=== PATIENT | female | born 1995 | race Caucasian/White ===

== ENCOUNTER 2017-01-22 07:43 | Inpatient (IN) | payer OTHER ==
[~2017-01-22] VITALS: Ht 157.5 cm; Wt 85.5 kg
[~2017-01-22 07:43] MED LIST: BCPILLS PO
[2017-01-22] MEDS ORDERED: PRENTAB26 PO (08:34)
[2017-01-22 08:37] VITALS: Ht 157.5 cm; Wt 85.5 kg
[2017-01-22] MEDS ORDERED: LACTATED RINGER'S 1000ML 1,000 ML IV PRN (08:56)
[2017-01-22 09:26] LABS: HEMATOCRIT 38.3 % (37-47); MEAN CELL VOLUME 94.1 fL (80-100); MEAN CORPUSCULAR HEMOGLOBIN 32.4 pg (25-34); MEAN CORPUSCULAR HGB CONC 34.5 g/dl (32-36); MEAN PLATELET VOLUME 11.1 fL (7.4-10.4); PLATELET COUNT 202 K/uL (130-400); RED BLOOD COUNT 4.07 M/uL (4.2-5.4)
[2017-01-22] MEDS ORDERED: PENICILLIN G POTASSIUM IV 6 MU in DEXTROSE 5% 250ML 250 ML IV SCH (10:00)
[2017-01-22] MEDS ORDERED: DINOPROSTONE 10 MG INSERT PV ONE (10:00)
[2017-01-22 11:04] LABS: BENZODIAZEPINE, URINE NEG (NEG); COCAINE,URINE NEG (NEG); PHENCYCLIDINE, URINE NEG (NEG)
[2017-01-23] MEDS ORDERED: LACTATED RINGER'S 1000ML 500 ML IV PRN ×2 (00:29→13:35)
[2017-01-23] MEDS ORDERED: OXYTOCIN 30 UNITS/500ML NSS IV PRN (00:30)
[2017-01-23] MEDS: LACTATED RINGER'S 1000ML 1,000 ML IV SCH ×5 (03:28→20:48)
[2017-01-23] MEDS: PENICILLIN G POTASSIUM IV 3 MU in DEXTROSE 5% 100ML 100 ML IV PRN ×5 (07:20→23:51)
[2017-01-23] MEDS ORDERED: FENTANYL 2MCG/ML ROPIV 1.25MG/ML 100ML BAG EPI ONE (11:30)
[2017-01-23] MEDS ORDERED: BUPIVACAINE 0.25% 30 ML VIAL ONE (11:30)
[2017-01-23] MEDS ORDERED: EpHEDrine SULFATE INJ 50 MG/ML AMP ONE (11:30)
[2017-01-23] MEDS ORDERED: FENTANYL CITRATE INJ 50 MCG/1 ML 2 ML VIAL ONE (11:30)
[2017-01-23] MEDS ORDERED: NALOXONE HCL INJ 1 MG in SODIUM CHLORIDE 0.9% 1000ML 1,000 ML IV PRN (13:35)
[2017-01-23] MEDS ORDERED: EpHEDrine SULFATE INJ 50 MG/ML AMP IV PRN (13:45)
[2017-01-23] MEDS ORDERED: NALOXONE HCL INJ 0.4 MG/1 ML VIAL/CARP IV PRN (13:45)
[2017-01-23] MEDS ORDERED: DiphenhydrAMINE HCL 50 MG/ML VIAL IV PRN (13:45)
[2017-01-23] MEDS ORDERED: ONDANSETRON INJ 2 MG/ML 2 ML VIAL IV PRN (13:45)
[2017-01-23] MEDS ORDERED: NALBUPHINE HCL INJ 10 MG/ML AMP IV PRN (13:45)
[2017-01-23] MEDS: FENTANYL 2MCG/ML ROPIV 1.25MG/ML 100ML BAG EPI PRN ×2 (14:59→22:45)
[2017-01-24] VITALS (11 sets, daily range): BP systolic 111–126; BP diastolic 72–75; PULSE 82–99; TEMP 36.4–38; O2SAT 92–97
[2017-01-24] MEDS ORDERED: NURSING VERBAL MED ORDER ONE (01:15)
[2017-01-24] MEDS ORDERED: BUPIVACAINE 0.25% 30 ML VIAL ONE (01:53)
[2017-01-24] MEDS ORDERED: FENTANYL 2MCG/ML ROPIV 1.25MG/ML 100ML BAG EPI PRN (02:15)
[2017-01-24] MEDS: PENICILLIN G POTASSIUM IV 3 MU in DEXTROSE 5% 100ML 100 ML IV PRN (03:57)
[2017-01-24] MEDS: FENTANYL 2MCG/ML ROPIV 1.25MG/ML 100ML BAG EPI PRN ×2 (05:39→07:01)
[2017-01-24] MEDS ORDERED: CEFOXITIN IV 2,000 MG in DEXTROSE 5% 50ML 50 ML IV SCH (06:00)
[2017-01-24] MEDS ORDERED: CITRIC ACID/SODIUM CITRATE 15 ML UDC ONE (08:05)
[2017-01-24] MEDS ORDERED: LACTATED RINGER'S 1000ML 1,000 ML IV SCH ×2 (08:06→10:25)
[2017-01-24] MEDS ORDERED: LIDOCAINE/EPINEPHRINE 2% 1:200,000 20 ML SDV ONE ×2 (08:14→09:21)
[2017-01-24] MEDS ORDERED: CITRIC ACID/SODIUM CITRATE 15 ML UDC PO ONE (08:15)
[2017-01-24] MEDS ORDERED: SODIUM BICARB 8.4% INJ 50 MEQ/50 ML SYR IV ONE (08:44)
[2017-01-24] MEDS ORDERED: ONDANSETRON INJ 2 MG/ML 2 ML VIAL ONE (09:21)
[2017-01-24] MEDS ORDERED: OXYTOCIN INJ 10 UNITS/ML VIAL ONE ×4 (09:21→10:04)
[2017-01-24] MEDS ORDERED: METHYLERGONOVINE MALEATE 0.2 MG/ML AMP ONE (09:34)
[2017-01-24] MEDS ORDERED: MoRPHine SULFATE PF 1 MG/ML 10 ML AMP/VIAL ONE (09:35)
[2017-01-24] MEDS ORDERED: NO NARCOTICS OR SEDATIVES SCH (10:00)
[2017-01-24] MEDS ORDERED: KETOROLAC TROMETHAMINE 30 MG/ML VIAL IV. PRN (10:00)
[2017-01-24] MEDS ORDERED: MoRPHine SULFATE 2 MG/ML CARP IV PRN (10:00)
[2017-01-24] MEDS ORDERED: MoRPHine SULFATE PF 1 MG/ML 10 ML AMP/VIAL EPI PRN (10:00)
[2017-01-24] MEDS ORDERED: MEPERIDINE HCL 25 MG/ML CARP IV PRN (10:00)
[2017-01-24] MEDS ORDERED: CONTINUE MEDICATION ONE (10:00)
[2017-01-24] MEDS ORDERED: MAGNESIUM HYDROXIDE SUSP 30 ML UDC PO PRN (10:30)
[2017-01-24] MEDS ORDERED: SUPERCREAM 0.870 % 15GM JAR EXT PRN (10:30)
[2017-01-24] MEDS ORDERED: HYDROCORTISONE ACETATE 25 MG SUPP PR PRN (10:30)
[2017-01-24] MEDS ORDERED: LANOLIN OINT EXT PRN ×2 (10:30)
[2017-01-24] MEDS ORDERED: SENNA 8.6 MG TAB PO PRN (10:30)
[2017-01-24] MEDS ORDERED: BENZOCAINE 20% AER SPR 82.5 GM CAN EXT PRN (10:30)
[2017-01-24] MEDS ORDERED: PROMETHAZINE HCL INJ 25 MG in SODIUM CHLORIDE 0.9% 50ML 50 ML IV PRN (10:30)
[2017-01-24] MEDS: OXYTOCIN INJ 20 UNITS in LACTATED RINGER'S 1000ML 1,000 ML IV SCH ×2 (11:22→23:41)
--- NOTE | 2017-01-24 12:38 | Anesthesiology Progress Note ---
Anesthesia Post Op Note Date & Time Jan 24, 2017 at 12:37 Vital Signs Pain Intensity: 0.0 Notes Mental Status: alert / awake / arousable, participated in evaluation Pt Amnestic to Procedure: Yes Nausea / Vomiting: adequately controlled Pain: adequately controlled Airway Patency, RR, SpO2: stable & adequate BP & HR: stable & adequate Hydration State: stable & adequate Neuraxial Anesthesia: was administered, sensory block is resolving Anesthetic Complications: no major complications apparent The patient feels well with no complaints. She is moving her legs and toes. The epidural catheter was removed at the end of the procedure with the black tip intact.
[2017-01-24] MEDS ORDERED: GENTAMICIN CONSULT ACTIVE PRN (13:00)
[2017-01-24] MEDS: SIMETHICONE 80 MG CHEW PO SCH ×3 (14:09→20:02)
[2017-01-24] MEDS: AMPICILLIN IV 2,000 MG in SODIUM CHLORIDE 0.9% 100ML 100 ML IV SCH ×2 (14:09→20:02)
--- NOTE | 2017-01-24 14:26 | Pharmacy Progress Note ---
Pharmacy Abx Initial Consult Date of Service Jan 24, 2017. Pharmacy Dosing Scope Date of Consult: 01/24/17 Consultation requested by: Dr. Gordillo Gentamicin 120 mg IV every [address] Gordillo. Based on conversation with provider, he would like Pharmacy to monitor Gentamicin IV, order appropriate labs and adjust drug dose/frequency as needed. Subjective The patient is a 21 year old female admitted on Jan 22, 2017 at 07:43. Objective Height (Feet): 5 Height (Inches): 2.00 Weight (Kilograms): 85.500 Assessment & Plan Assessment 21 year old female s/p . Patient is being started on empiric ampicillin and gentamicin IV due to fever. * antibiotics are ordered with "post-op" indication, therefore, order will discontinue in 24 hours --> nurse aware * no baseline kidney function - ordered SCR * Dr. Gordillo requested dose of 120 mg IV every 8 be given initially and pharmacy may adjust as needed Plan Empiric ampicillin and gentamicin for treatment of fever s/p Ampicillin (not pharmacy consult) - 2g IV every 6 hours Gentamicin * Patient is not a candidate for extended-interval dosing due to altered pharmacokinetics in the setting of POD #0 s/p * Dose: 120 mg (1.8 mg/kg) IV every 8 hours * Goal trough level: < 1-2 mcg/mL * Goal peak level: 6 to 8 mcg/mL * Peak and trough level will be ordered if gentamicin is continued beyond 24 hours Pharmacy will continue to follow and will adjust dose/frequency as necessary. Thank you.
--- NOTE | 2017-01-24 14:33 | OPERATIVE REPORT ---
DATE OF OPERATION: 01/24/2017 INDICATION FOR SURGERY: This is a 21-year-old G1, P0 who was induced for postdates. Induction was started on 01/22/2017. She received Cervidil, followed by Pitocin. The patient progressed to 5 cm and arrested labor at 5 cm. She remained at 5-6 cm for 12 hours with no change in cervical dilation. Artificial rupture of membranes was performed. Pitocin augmentation was performed as well. The patient continued to arrest at 5-6 cm. She experienced deceleration which occurred on 01/24/2017 around 0500. Fetus was successfully resuscitated. Pitocin was stopped and after 1-2 hours, there was still no change in dilation. Decision was therefore made to perform section. The patient agreed, consent was obtained and was sent to the OR for section. PREOPERATIVE DIAGNOSES: 1. Primary section. 2. Failure to progress. POSTOPERATIVE DIAGNOSES: Same. PROCEDURE: section. FINDINGS: Live infant female in occiput posterior presentation. 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 There was body cord and the nuchal cord as well as meconium. Uterus appeared grossly normal. Both adnexa appeared grossly normal. The rest of the abdominal and pelvic exam was unremarkable. ESTIMATED BLOOD LOSS: 750 mL. IV FLUIDS: 2000 mL. URINE OUTPUT: 250 mL clear urine at end of the procedure. SPECIMEN: 1. Placenta. 2. Cord blood. 3. Cord gases. DRAINS: Grossman catheter. SURGEON: Dr. Gordillo. MUSIC INTERN: Dr. Antony. ANESTHESIA: Epidural. COMPLICATIONS: None. DISPOSITION: Stable to recovery room. PROCEDURE IN DETAIL: The patient was taken to the operating room where she was prepped and draped in normal sterile fashion after timeout was called. A Pfannenstiel incision was made with a scalpel and carried down to the fascia. Fascia was incised in the midline and extended laterally on both sides. The rectus abdominis muscle was sharply dissected off the fascia. The peritoneum was identified and entered sharply. Once inside the abdomen, an Darin retractor was placed in the abdomen for visualization. The vesicouterine peritoneum was sharply dissected off the lower segment of the uterus. Transverse incision was made in lower segment of the uterus and extended laterally. was delivered as stated and findings. The infant was in occiput posterior presentation. 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 was delivered. There was a nuchal cord which was loose and easily reduced, so was the body cord. Cord was clamped and handed over to the pediatric team. As stated above, there was also meconium present. Placenta was manually removed and uterus was exteriorized and cleared of all clots and debris. Uterus was closed in 2 layers using 0 Vicryl. The vesicouterine peritoneum was reapproximated with plain suture. There was good hemostasis at the end of the closure. Copious amount of irrigation was used to irrigate the abdomen. The uterus was returned back into the abdominal cavity. Both fallopian tubes and adnexa appeared grossly normal. Uterus appeared grossly normal as well. Rest of the pelvic and abdominal exam was unremarkable. The Darin retractor was removed. The peritoneum was reapproximated using plain suture. The rectus abdominis muscle was reapproximated using plain suture as well. The fascia was closed in a running fashion using a Vicryl stitch. The subQ space was reapproximated using plain suture and skin was closed with 4-0 Monocryl. All instruments are removed from the abdomen and vagina and accounted for x2 including sponges and needles. The patient and baby are doing well in recovery. I attest to the content of the Intraoperative Record and any orders documented therein. Any exception s are noted below.
[2017-01-24 15:07] LABS: CREATININE 1.4 mg/dl (0.60-1.20)
[2017-01-24] MEDS: GENTAMICIN INJ 120 MG in DEXTROSE 5% 100ML 100 ML IV SCH ×2 (15:28→23:38)
[2017-01-24] MEDS: DOCUSATE SODIUM 100 MG CAP PO SCH (20:02)
[2017-01-25] VITALS (7 sets, daily range): BP systolic 98–111; BP diastolic 59–74; PULSE 81–94; TEMP 36.6–37; O2SAT 94–97
[2017-01-25] MEDS: AMPICILLIN IV 2,000 MG in SODIUM CHLORIDE 0.9% 100ML 100 ML IV SCH ×2 (03:07→09:16)
[2017-01-25] MEDS ORDERED: ONDANSETRON INJ 2 MG/ML 2 ML VIAL IV PRN (04:00)
[2017-01-25] MEDS ORDERED: DC INTRASPINAL MORPHINE SCH (04:00)
[2017-01-25] MEDS ORDERED: OXYCODONE/ACETAMINOPHEN 5-325 TAB PO PRN (04:00)
[2017-01-25] MEDS ORDERED: DiphenhydrAMINE HCL 50 MG/ML VIAL IV PRN (04:00)
[2017-01-25] MEDS: IBUPROFEN 600 MG TAB PO PRN ×4 (06:20→20:25)
[2017-01-25] MEDS: OXYCODONE/ACETAMINOPHEN 5-325 TAB PO PRN ×4 (06:20→20:25)
[2017-01-25] MEDS: GENTAMICIN INJ 120 MG in DEXTROSE 5% 100ML 100 ML IV SCH (07:22)
[2017-01-25 07:35] LABS: BASO % 0.1 %; BASO ABS # 0.01 K/uL (0-0.2); COMPLETE YES; EOS % 1.4 %; HEMATOCRIT 31.3 % (37-47); IG% 0.4 %; LYMPH % 10.8 %; LYMPH ABS # 1.72 K/uL (1.2-3.4); MEAN CORPUSCULAR HEMOGLOBIN 31.5 pg (25-34); MEAN CORPUSCULAR HGB CONC 33.5 g/dl (32-36); MEAN PLATELET VOLUME 10.7 fL (7.4-10.4); MONO % 7.4 %; NEUT % 79.9 %; PLATELET COUNT 145 K/uL (130-400); RED BLOOD COUNT 3.33 M/uL (4.2-5.4); WHITE BLOOD COUNT 15.93 K/uL (4.8-10.8)
[2017-01-25 08:06] LABS: CREATININE 0.8 mg/dl (0.60-1.20)
[2017-01-25] MEDS: SIMETHICONE 80 MG CHEW PO SCH ×4 (08:11→20:26)
[2017-01-25] MEDS: DOCUSATE SODIUM 100 MG CAP PO SCH ×2 (08:11→20:26)
[2017-01-25] MEDS: PRENATAL VITAMIN TAB PO SCH (08:12)
[2017-01-25] MEDS: FERROUS SULFATE 325 MG TAB PO SCH (08:12)
--- NOTE | 2017-01-25 09:23 | OB/GYN Progress Note ---
[employer] Progress Note Date of Service Jan 25, 2017. Subjective conversation w/ patient, physical exam Ambulation: ambulating normally Voiding: vann catheter in place Passing Gas: Yes Diet Tolerance: Regular Diet Lochia: Small Feeding Type: Breast Feeding Pain: 2/10 Notes: Doing well. Pain well controlled. Incision dressing removed and is c/d/i. Lochia minimal. Tolerating regular diet, +flatus, -BM. Vann in place and draining clear urine. Will remove this morning. Objective Vital Signs Date Time Temp Pulse Resp B/P (MAP) Pulse Ox O2 Delivery O2 Flow Rate FiO2 01/25/17 03:55 36.7 89 16 103/59 (74) 96 Room Air 01/25/17 03:00 16 96 01/25/17 02:00 16 94 01/25/17 01:00 16 94 01/25/17 00:00 96 Room Air 01/25/17 00:00 36.9 88 18 103/67 (79) 96 Room Air 01/25/17 00:00 18 96 01/24/17 23:00 18 96 01/24/17 22:00 18 95 01/24/17 21:00 18 96 01/24/17 20:00 36.4 82 18 111/72 (85) 97 Room Air 01/24/17 20:00 18 97 01/24/17 19:05 18 92 01/24/17 18:05 18 93 01/24/17 17:05 18 93 01/24/17 16:15 36.4 99 20 118/75 (89) 92 Room Air 01/24/17 16:15 92 Room Air 01/24/17 16:05 16 92 01/24/17 15:05 20 93 01/24/17 13:05 38.0 88 20 126/75 (92) 92 Room Air 01/24/17 13:05 92 Room Air Physical Exam General Appearance: WELL-APPEARING Respiratory/Chest: chest non-tender, lungs clear Cardiovascular: regular rate, rhythm Abdomen: normal bowel sounds, soft Fundus: Firm Incision Description: Clean, Dry & Intact Extremities: normal range of motion, non-tender, no calf tenderness Laboratory Results Last 24 Hours Test 01/24/17 14:06 01/25/17 07:08 Creatinine 1.40 mg/dl 0.80 mg/dl Est Creatinine Clear Calc Drug Dose 64.5 ml/min 112.9 ml/min Estimated GFR () 62.1 122.2 Estimated GFR (Non- 53.6 105.4 White Blood Count 15.93 K/uL Red Blood Count 3.33 M/uL Hemoglobin 10.5 g/dL Hematocrit 31.3 % Mean Corpuscular Volume 94.0 fL Mean Corpuscular Hemoglobin 31.5 pg Mean Corpuscular Hemoglobin Concent 33.5 g/dl Platelet Count 145 K/uL Mean Platelet Volume 10.7 fL Neutrophils (%) (Auto) 79.9 % Lymphocytes (%) (Auto) 10.8 % Monocytes (%) (Auto) 7.4 % Eosinophils (%) (Auto) 1.4 % Basophils (%) (Auto) 0.1 % Neutrophils # (Auto) 12.73 K/uL Lymphocytes # (Auto) 1.72 K/uL Monocytes # (Auto) 1.18 K/uL Eosinophils # (Auto) 0.22 K/uL Basophils # (Auto) 0.01 K/uL RDW Standard Deviation 49.4 fL RDW Coefficient of Variation 14.4 % Immature Granulocyte % (Auto) 0.4 % Immature Granulocyte # (Auto) 0.07 K/uL Assessment and Plan Post-Op Day Number: 1 Continue Routine Care: -D/C soo magallon AM -[facility] c/d/i -Continue routine postop care.
[2017-01-25] MEDS ORDERED: BISACODYL 5 MG TABEC PO ONE (22:00)
[2017-01-26] VITALS: BP 115/73; PULSE 77; TEMP 36.4; O2SAT 99
[2017-01-26] MEDS: IBUPROFEN 600 MG TAB PO PRN ×6 (01:02→20:59)
[2017-01-26] MEDS: OXYCODONE/ACETAMINOPHEN 5-325 TAB PO PRN ×6 (01:02→21:00)
[2017-01-26 06:36] LABS: HEMATOCRIT 31.9 % (37-47)
--- NOTE | 2017-01-26 07:26 | OB/GYN Progress Note ---
[employer] Progress Note Date of Service Jan 26, 2017. Subjective conversation w/ patient, physical exam Ambulation: ambulating normally Voiding: no voiding problems Passing Gas: Yes Diet Tolerance: Regular Diet Lochia: Moderate Feeding Type: Breast Feeding Review of Systems Constitutional: No fever, No chills, No sweats, No weight loss, No weakness, No fatigue, No problem reported Respiratory: No cough, No sputum, No wheezing, No shortness of breath, No dyspnea on exertion, No dyspnea at rest, No hemoptysis, No problem reported Cardiac: No chest pain, No orthopnea, No PND, No edema, No claudication, No palpitations, No problem reported Breast: No see HPI, No breast lump, No change in shape, No nipple discharge, No breast pain, No problem reported Abdomen: No pain, No nausea, No vomiting, No diarrhea, No constipation, No GI bleeding, No problem reported Female : No see HPI, No dysuria, No urinary frequency, No hematuria, No incontinence, No abnormal vaginal bleeding, No vaginal discharge, No problem reported Objective Vital Signs Date Time Temp Pulse Resp B/P (MAP) Pulse Ox O2 Delivery O2 Flow Rate FiO2 01/26/17 00:00 36.4 77 18 115/73 (87) 99 Room Air 01/26/17 00:00 99 Room Air 01/25/17 15:45 Room Air 01/25/17 15:45 36.6 81 18 98/66 (77) 97 Room Air 01/25/17 07:30 Room Air 01/25/17 07:30 37.0 94 18 111/74 (86) 96 Room Air Physical Exam General Appearance: WELL-APPEARING Respiratory/Chest: chest non-tender Cardiovascular: regular rate, rhythm Abdomen: normal bowel sounds Fundus: Firm Incision Description: Clean, Dry & Intact Extremities: normal range of motion Laboratory Results Last 24 Hours Test 01/26/17 06:18 Hemoglobin 10.5 g/dL Hematocrit 31.9 % Assessment and Plan Post-Op Day Number: 2 Continue Routine Care: c/sec day #2 Pt doing well d/c home with instructions
[2017-01-26 08:30] VITALS: BP 131/85; PULSE 82; TEMP 36.4; O2SAT 99
[2017-01-26] MEDS: DOCUSATE SODIUM 100 MG CAP PO SCH ×2 (09:19→20:59)
[2017-01-26] MEDS: FERROUS SULFATE 325 MG TAB PO SCH (09:19)
[2017-01-26] MEDS: SIMETHICONE 80 MG CHEW PO SCH ×4 (09:19→20:59)
[2017-01-26] MEDS: PRENATAL VITAMIN TAB PO SCH (09:19)
[2017-01-26] MEDS ORDERED: BISACODYL 10 MG SUPP PR PRN (10:30)
[2017-01-26 11:00] VITALS: BP 122/84; PULSE 84; TEMP 36.4; O2SAT 98
[2017-01-26 15:50] VITALS: BP 113/72; PULSE 80; TEMP 36.6; O2SAT 98
[2017-01-26 23:25] VITALS: BP 116/76; PULSE 68; TEMP 36.4
[2017-01-27] MEDS: OXYCODONE/ACETAMINOPHEN 5-325 TAB PO PRN ×2 (02:08→08:28)
[2017-01-27] MEDS: IBUPROFEN 600 MG TAB PO PRN ×2 (02:08→08:28)
[2017-01-27 07:30] VITALS: BP 135/93; PULSE 70; TEMP 36.6; O2SAT 98
[2017-01-27] MEDS: SIMETHICONE 80 MG CHEW PO SCH (08:26)
[2017-01-27] MEDS: DOCUSATE SODIUM 100 MG CAP PO SCH (08:26)
[2017-01-27] MEDS: FERROUS SULFATE 325 MG TAB PO SCH (08:26)
[2017-01-27] MEDS: PRENATAL VITAMIN TAB PO SCH (08:26)
[2017-01-27] MEDS ORDERED: MTR600X PO (09:38)
--- NOTE | 2017-01-27 09:41 | Discharge Instructions ---
Discharge Instructions Date of Service Jan 27, 2017. Admission Reason for Admission: Induction Discharge Discharge Diagnosis / Problem: term delivered Discharge Goals Goal(s): Routine recovery after delivery Activity Recommendations Activity Limitations: as noted below Lifting Limitations: no more than 10 pounds May Resume Sexual Activity: after follow-up appointment Shower/Bathe: no limitations Driving or Machine Use: resume 3 days after discharge . Instructions / Follow-Up Instructions / Follow-Up ACTIVITY RECOMMENDATIONS: * Gradual return to full activity over the next 2-3 weeks. * No lifting - nothing heavier than baby over the next 2-3 weeks. * Do not engage in vigorous exercise, sexual activity or sports until cleared by your physician. * Do not drive or operate any motorized equipment until cleared by your physician. * You may shower/bathe daily. BREAST CARE: If you are not breast feeding: * Wear a supportive bra 24 hours a day for one to two weeks. * Avoid stimulating your breasts and nipples as much as possible during the first few weeks after delivery. * When taking a shower, have the warm water hit your back, not breasts. * When your breasts feel full, apply ice packs. Usually three to four times a day helps ease the discomfort. * Take a mild pain medication (Tylenol/Motrin) when you are uncomfortable. If breast feeding: * Use breast milk to lubricate nipples. Lansinoh cream may be used for sore nipples. You do not need to remove cream prior to breast feeding. If using a different brand of cream, check the label for directions regarding removal of cream prior to nursing. * Wear a supportive bra. * If having problems with breasts or breast feeding, call a medical consultant or your health care provider. EPISIOTOMY CARE: After delivery, if you have an episiotomy (stitches), the following steps will ease discomfort and aid healing. * For the first 24 hours after delivery, place ice packs next to your episiotomy to help reduce swelling. * After the first 24 hour-period, sitz baths, either portable or in the tub, are suggested. A shower with a shower arm sprayed over the episiotomy may be comforting. * Rema care should be done after each voiding and bowel movement. Squirt warm water from a plastic bottle over the perineum (region of the body between the anus and urinary opening) and pat dry. * Use Dermoplast to ease discomfort. Shake container. [place] directly over the episiotomy. * Place a Tucks on a clean sanitary pad next to your episiotomy. OVER THE COUNTER MEDICATION: * For discomfort or pain, you may use Acetaminophen (Tylenol), Ibuprofen (Advil ), or Naproxen (Aleve) following the package directions. * For constipation you may use Colace following the package directions. SPECIAL CARE INSTRUCTIONS: When you are discharged from the hospital, it is important for you to follow the instructions listed below: * During the first week at home, you should be able to care for yourself and your baby. In addition, the usual light household activities are encouraged. * Limit your activities to the way you feel. Do not try to clean the house or move furniture. Be sensible. * If you actively engage in sports and have done so up until the time of your delivery, you may resume these activities as soon as you feel able. This may take up to one month or even longer. Use good judgment. * Continue to take your vitamins for at least six weeks after the of your baby. * Your diet need not be limited unless you were on a special diet before your delivery. Breast-feeding mothers need around 2500 calories per day and at least 64-80 ounces of fluid per day (8 to 10 glasses). * You should eat foods from the four major food groups. Crash diets or fad diets are to be avoided. Eating lean meats, fresh fruits and vegetables, low-fat dairy products, high fiber foods and a regular exercise program, will help you get back to your pre- weight without putting your health at risk. * Constipation is sometimes a problem after delivery. Take a mild laxative as needed. If breast feeding, Milk of Magnesia is acceptable to use. You may use a suppository or Fleets enema if no episiotomy. * A daily shower or tub bath is suggested. Be sure to thoroughly and gently dry the perineum. * A bloody vaginal discharge will usually continue until around four weeks post . A small amount of bleeding may continue for as long as six weeks. Vaginal discharge changes from the bright red bleeding after delivery to pink then brownish and finally yellowish-pink before becoming white and disappearing. * Bleeding may increase with activity. Your first period may come in 4-8 weeks. If you are breast feeding, your period may be delayed even longer. * [place] (sex) can begin whenever both you and your partner feel comfortable and do not have any form of genital infection. It is recommended that you wait until after your return appointment and discuss with your physician. If you have questions, please talk to your health care practitioner. A condom should be used to prevent infection and . * Foreplay, gentle intercourse and lubrication is very important the first several times to prevent pain. A water-based lubricant such as K-Y jelly or Astroglide may be used. * Tampons may be used six weeks after delivery. * Douching should be avoided for 6 weeks after delivery. * If you have RH negative blood and your baby is RH positive, you will receive RHOGAM by injection prior to discharge. The nurse will give you a card to keep with you that has the date and place that you received RHOGAM after delivery. * During your care, you had a Rubella screen done to check for the presence of rubella antibodies in your blood. If your test was negative, you will receive a Rubella vaccine prior to discharge. This vaccine may cause a fever, soreness at the injection site and flu-like symptoms. If these symptoms persist, notify your health care practitioner. is not advised for three months after a Rubella vaccine. There is a higher chance of having a baby with defects if conceived within three months of getting the vaccine. * If you were discharged 24 hours from delivery or before 48 hours: Visiting nurses will come to your home 48 hours after discharge to assess you and your baby. The visiting nurse will meet with you while you are in the hospital to arrange a time and get directions to your home. * Verbalizes understanding of car seat law as reviewed with patient nursing. * Car Seat hand-out given and reviewed with patient by nursing. * Shaken baby information reviewed with patient by nursing. Call you doctor if: * Heavy bleeding (saturating several pads an hour) or passing clots the size of your fist. * A fever >101 degrees F (38.3 degrees C) on two occasions four hours apart and/or chills. * Unusual pain in the pelvic or vaginal areas. * "Baby Blues" lasting longer than two weeks. If you have any questions or concerns, call your health care practitioner at . FOLLOW-UP VISIT: * Please call the office at to schedule a 6 week examination. It is important you keep this appointment. * It is important for you to make arrangements for either yearly or twice yearly check-ups thereafter. Current Hospital Diet Patient's current hospital diet: Regular OB Diet Discharge Diet Recommended Diet: Regular OB Diet Fluid Restriction: None Procedures Procedures Performed: Live Female at 0926 Pending Studies Studies pending at discharge: no Medical Emergencies . Who to Call and When: Medical Emergencies: If at any time you feel your situation is an emergency, please call 911 immediately. . Non-Emergent Contact Non-Emergency issues call your: Primary Care Provider . . "Provider Documentation" section prepared by Magno Montero. . VTE Core Measure Inpt VTE Proph given/why not?: SCD's, Treatment not indicated
[2017-01-27] MEDS ORDERED: OXYC-57 PO (10:03)
--- NOTE | 2017-01-27 10:08 | Surgery Progress Note ---
Surgery Progress Note Date of Service Jan 27, 2017. Subjective Post OP Day: 3 + feeling well, + ambulating, + flatus, + pain controlled Objective Vital Signs: Date Time Temp Pulse Resp B/P (MAP) Pulse Ox O2 Delivery O2 Flow Rate FiO2 01/27/17 07:30 36.6 70 20 135/93 (107) 98 Room Air 01/27/17 07:25 Room Air 01/26/17 23:25 Room Air 01/26/17 23:25 36.4 68 18 116/76 (89) Room Air 01/26/17 15:50 36.6 80 18 113/72 (86) 98 Room Air 01/26/17 15:50 98 Room Air 01/26/17 11:00 36.4 84 16 122/84 (97) 98 Room Air General Appearance: no apparent distress Abdomen: non tender, non distended, soft Incision(s): clean, dry, intact Assessment & Plan regular diet POD#3 discharged
[2017-01-27 12:20] VITALS: BP_DIAS 93; PULSE 70; TEMP 36.6
--- NOTE | 2017-02-13 09:10 | DISCHARGE SUMMARY ---
CHIEF COMPLAINT: Induction for post-dates. HISTORY OF PRESENT ILLNESS: This is a 21-year-old G1, P0 who was admitted for postdate induction on 01/22/2017. She received Cervidil followed by Pitocin. The patient's labor arrested at 5 cm after a period of about 12 hours. There was no change in cervical dilation despite Pitocin and artificial rupture of membranes. Decision was therefore made to proceed to section. The patient had a section on 01/24/2017 around 0500 hours. She delivered a live infant female weighing 7 pounds 15 ounces, Apgars was 9 and 9. Details of the surgery and pediatric information are in the respective records. The patient continued to do well after surgery. On postop day #1, 2 and 3 she continued to improve. Her diet was advanced, ambulation improved and was discharged home safely with instructions on 01/27/2017. PAST MEDICAL HISTORY: None. PAST SURGICAL HISTORY: section, dental surgery as well as D&C. FAMILY HISTORY: Noncontributory. SOCIAL HISTORY: The patient is a smoker. ALLERGIES: The patient has no known drug allergies. REVIEW OF SYSTEMS: Negative except as dictated in the HPI. PHYSICAL EXAMINATION: GENERAL: Well-developed, well-nourished white female in no acute distress. VITAL SIGNS: On 01/27/2017 showed temperature 36.6, pulse of 70, respiration 20, blood pressure 135/93. H&H on 01/26/2017 showed hemoglobin of 10.5, hematocrit of 31.9. HEART: S1, S2, regular rhythm and rate. LUNGS: Clear to auscultation bilaterally. ABDOMEN: Nontender, nondistended. Positive bowel sounds. Incision clean, dry and intact. EXTREMITIES: No cyanosis, clubbing or edema. CONDITION ON DISCHARGE: Stable. OPERATION: Primary section. DISCHARGE DIAGNOSIS: Postoperative section. PLAN ON DISCHARGE: The patient is discharged home with instructions regarding activity, diet, follow-up appointment and medications.
== END 2017-01-27 11:30 | disposition home or self-care (01) | DRG 766 ==
LOC: C.LD 07:43 → C.OBG 01-24 14:04
PROVIDERS: ADMIT Obstetrics & Gynecology; ATTEND Obstetrics & Gynecology
PROC: 3E0P7GC Introduction of Other Therapeutic Substance into Female Reproductive, Via Natural or Artificial Opening (ICD-10-PCS; principal; 2017-01-22)
PROC: 3E033VJ Introduction of Other Hormone into Peripheral Vein, Percutaneous Approach (ICD-10-PCS; principal; 2017-01-22)
PROC: 10D00Z1 Extraction of Products of Conception, Low, Open Approach (ICD-10-PCS; 2017-01-24)
DX: O62.2 Other uterine inertia (principal); O48.0 Post-term pregnancy; O99.824 Streptococcus B carrier state complicating childbirth; O76 Abnormality in fetal heart rate and rhythm complicating labor and delivery; Z37.0 Single live birth; Z3A.40 40 weeks gestation of pregnancy